=== PATIENT | male | born 1980 | race African-American/Black ===

== ENCOUNTER 2019-03-29 19:43 | Emergency (ER) | payer MEDICAID ==
[~2019-03-29] VITALS: Ht 177.8 cm; Wt 64.0 kg
[2019-03-29 23:47] LABS: CLARITY URINE CLEAR (CLEAR); COLOR URINE YELLOW (YELLOW); KETONES URINE NEGATIVE (NEGATIVE); LEUKOCYTE ESTERASE URINE NEGATIVE (NEGATIVE); NITRITE URINE NEGATIVE (NEGATIVE); OCCULT BLOOD URINE NEGATIVE (NEGATIVE); PH URINE 7.5 (4.5-8.0); PROTEIN URINE NEGATIVE (NEGATIVE); SPECIFIC GRAVITY URINE 1.007 (1.005-1.030)
[2019-03-30 00:31] VITALS: BP 124/75
== END 2019-03-30 00:33 | disposition home or self-care (01) ==
LOC: ER 19:43
DX: K08.89 Other specified disorders of teeth and supporting structures (principal); R51 Headache; R42 Dizziness and giddiness; F17.290 Nicotine dependence, other tobacco product, uncomplicated
CPT/HCPCS: 81003; 99283; 99406